=== PATIENT | female | born 1980 | race Caucasian/White ===

== ENCOUNTER 2017-10-13 21:09 | Inpatient (IN) | payer BC ==
[2017-10-13] MEDS ORDERED: Sodium Chloride 0.9% 10 ML Syringe FLUSH PRN (22:43)
[2017-10-13] MEDS ORDERED: Sodium Chloride 0.9% 1,000 ML IV SCH (23:15)
[2017-10-14] MEDS: fentaNYL 100 MCG/2 ML SDV IVPUSH PRN ×2 (00:16→01:20)
[2017-10-14] MEDS ORDERED: Lidocaine 1% 50 ML MDV ONE (01:28)
[2017-10-14] MEDS ORDERED: Methylergonovine 0.2 MG/1 ML Amp ONE (01:34)
[2017-10-14] MEDS ORDERED: Witch Hazel Medicated Pads 100/Jar TOP PRN (01:55)
[2017-10-14] MEDS ORDERED: Hydrocortisone 2.5% Crm 30 GM Tube TOP PRN (01:55)
[2017-10-14] MEDS ORDERED: Docusate Sodium 100 MG Cap PO PRN (01:55)
[2017-10-14] MEDS ORDERED: Benzocaine 20% Top Spray 56 GM Bottle TOP PRN (01:55)
[2017-10-14] MEDS ORDERED: Ibuprofen 200 MG Tab, 24 Tab Bulk Bottle PO PRN (02:03)
[2017-10-14] MEDS ORDERED: Acetaminophen 325 MG Tab, 50 Tab Bulk Bottle PO PRN (02:03)
--- NOTE | 2017-10-14 02:14 | PCM.LDHP ---
L&D History of Present Illness - General Date of Service: 10/14/17 (SROM) Admit Problem/Dx: Patient Status Order with Admit Dx/Problem 10/13/17 22:40 Patient Status [ADT] Routine 10/14/17 01:55 Patient Status [ADT] Routine Admission Diagnosis/Problem Admission Diagnosis/Problem Active labor Source of Information: Patient History Limitations: Reports: No Limitations - History of Present Illness Introduction:: This 37 yr old who is 38 2/7 present with SROM at parents home at 2030. Fluid was fluid. No contractions. Amnio sure was positive Adequate , healthy lady Labs: ABO A neg had Rhogam at 29 weeks HIV neg Rubella immune GBS neg ANGY 10/25/17 Pain Score: 10 Improves with: Reports: None Worsens with: Reports: None Associated Symptoms: Reports: vaginal fluid - Related Data Allergies/Adverse Reactions: Allergies Allergy/AdvReac Type Severity Reaction Status Date / Time morphine Allergy Hives Verified 10/08/13 13:59 Home Medications: Home Meds Vit #76/Iron,Carb/Fa [Prenatabs Rx] 1 tab PO DAILY 07/17/14 [History] Calcium Carbonate [Tums Extra Strength] 750 mg PO DAILY PRN 10/27/14 [History] Cetirizine HCl [Zyrtec] 10 mg PO DAILY PRN 10/13/17 [History] Omeprazole 20 mg PO DAILY 10/13/17 [History] Past Medical History PACS SPECIALIST History: Reports: : 4 Para: 1 LMP (Approximate): (38 2/7) Psychiatric History: Reports: Anxiety - Infectious Disease History Infectious Disease History: Reports: Chicken Pox, Shingles, Other (See Below) Other Infectious Disease History: [place] - Past Surgical History HEENT Surgical History: Reports: Tonsillectomy, Other (See Below) Other HEENT Surgeries/Procedures: wisdom teeth removed GI Surgical History: Reports: Appendectomy Social & Family History - Family History Family Medical History: Noncontributory - Tobacco Use Smoking Status *Q: Never Smoker Second Hand Smoke Exposure: No - Caffeine Use Caffeine Use: Reports: Coffee, Soda - Recreational Drug Use Recreational Drug Use: No H&P Review of Systems - Review of Systems: Review Of Systems: See Below General: Reports: No Symptoms HEENT: Reports: No Symptoms Pulmonary: Reports: No Symptoms Cardiovascular: Reports: No Symptoms Gastrointestinal: Reports: No Symptoms Genitourinary: Reports: No Symptoms Musculoskeletal: Reports: No Symptoms Skin: Reports: No Symptoms Psychiatric: Reports: No Symptoms Neurological: Reports: No Symptoms Hematologic/Lymphatic: Reports: No Symptoms Immunologic: Reports: No Symptoms L&D Exam - Exam Exam: See Below - Vital Signs Vital Signs: Last Vital Signs Temp 99.2 F 10/13/17 22:00 Pulse 107 H 10/13/17 22:00 Resp 20 10/13/17 22:00 BP 122/77 10/13/17 22:00 Pulse Ox Weight: 205 lb - OB Specific Contraction Duration (sec): 60 Contraction Frequency (min): 2 Contraction Intensity: Moderate to Strong Movement: Active Heart Tones: Present Heart Rate (FHR) Variability: Moderate (6-25 bmp) Presentation: Vertex Estimated Weight: 6-7 pounds - Stewart Score Stewart Score Cervix Position: Posterior Stewart Score Consistency: Soft Stewart Score Effacement: 51-70% Stewart Score Dilation: 1-2 cm Stewart Score Infant's Station: -2 Stewart Score Total: 6 - Exam General: Alert, Oriented HEENT: PERRLA, Conjunctiva Clear, EACs Clear, EOMI, Hearing Intact, Mucosa Moist & [place], Nares Patent, Normal Nasal Septum, Posterior Pharynx Clear, TMs Clear Neck: Supple, Trachea Midline Lungs: Clear to Auscultation, Normal Respiratory Effort Cardiovascular: Regular Rate, Regular Rhythm GI/Abdominal Exam: Normal Bowel Sounds, Soft, Non-Tender, No Organomegaly, No Distention, No Abnormal Bruit, No Mass, Pelvis Stable Rectal Exam: Normal Exam, Normal Rectal Tone Genitourinary: Normal external exam, Normal bimanual exam, Normal speculum exam Back Exam: Normal Inspection, Full Range of Motion Extremities: Normal Inspection, Normal Range of Motion, Non-Tender, No Pedal Edema, Normal Capillary Refill Skin: Warm, Dry, Intact Neurological: Cranial Nerves Intact, Reflexes Equal Bilateral Psychiatric: Alert, Normal Affect, Normal Mood - Patient Data Lab Results Last 24 hrs: Laboratory Results - last 24 hr 10/13/17 10/13/17 10/13/17 Range/Units 22:02 22:02 22:32 WBC (4.5-11.0) K/uL RBC (3.30-5.50) M/uL Hgb (12.0-15.0) g/dL Hct (36.0-48.0) % MCV (80-98) fL MCH (27-31) pg MCHC (32-36) % Plt Count (150-400) K/uL Urine Color Yellow Urine Appearance Cloudy Urine pH 6.5 (4.5-8.0) Ur Specific [place] 1.010 (1.008-1.030) Urine Protein Negative (NEGATIVE) mg/dL Urine Glucose (UA) Normal (NEGATIVE) mg/dL Urine Ketones Negative (NEGATIVE) mg/dL Urine Occult Blood Negative (NEGATIVE) Urine Nitrite Negative (NEGATIVE) Urine Bilirubin Negative (NEGATIVE) Urine Urobilinogen Normal (NORMAL) mg/dL Ur Leukocyte Esterase Small (NEGATIVE) Urine RBC 0-5 (0-5) Urine WBC 0-5 (0-5) Ur Epithelial Cells Few Amorphous Sediment Not seen Urine Bacteria Few Urine Mucus Not seen Membrane Rupture Positive H (NEGATIVE) Urine Opiates Screen Negative (NEGATIVE) Ur Oxycodone Screen Negative (NEGATIVE) Urine Methadone Screen Negative (NEGATIVE) Ur Propoxyphene Screen Negative (NEGATIVE) Ur Barbiturates Screen Negative (NEGATIVE) Ur Tricyclics Screen Negative (NEGATIVE) Ur Phencyclidine Scrn Negative (NEGATIVE) Ur Amphetamine Screen Negative (NEGATIVE) U Methamphetamines Scrn Negative (NEGATIVE) Urine MDMA Screen Negative (NEGATIVE) U Benzodiazepines Scrn Negative (NEGATIVE) U Cocaine Metab Screen Negative (NEGATIVE) U Marijuana (THC) Screen Negative (NEGATIVE) 10/13/17 Range/Units 22:57 WBC 12.4 H (4.5-11.0) K/uL RBC 4.07 (3.30-5.50) M/uL Hgb 11.6 L (12.0-15.0) g/dL Hct 35.6 L (36.0-48.0) % MCV 88 (80-98) fL MCH 29 (27-31) pg MCHC 33 (32-36) % Plt Count 300 (150-400) K/uL Urine Color Urine Appearance Urine pH (4.5-8.0) Ur Specific [place] (1.008-1.030) Urine Protein (NEGATIVE) mg/dL Urine Glucose (UA) (NEGATIVE) mg/dL Urine Ketones (NEGATIVE) mg/dL Urine Occult Blood (NEGATIVE) Urine Nitrite (NEGATIVE) Urine Bilirubin (NEGATIVE) Urine Urobilinogen (NORMAL) mg/dL Ur Leukocyte Esterase (NEGATIVE) Urine RBC (0-5) Urine WBC (0-5) Ur Epithelial Cells Amorphous Sediment Urine Bacteria Urine Mucus Membrane Rupture (NEGATIVE) Urine Opiates Screen (NEGATIVE) Ur Oxycodone Screen (NEGATIVE) Urine Methadone Screen (NEGATIVE) Ur Propoxyphene Screen (NEGATIVE) Ur Barbiturates Screen (NEGATIVE) Ur Tricyclics Screen (NEGATIVE) Ur Phencyclidine Scrn (NEGATIVE) Ur Amphetamine Screen (NEGATIVE) U Methamphetamines Scrn (NEGATIVE) Urine MDMA Screen (NEGATIVE) U Benzodiazepines Scrn (NEGATIVE) U Cocaine Metab Screen (NEGATIVE) U Marijuana (THC) Screen (NEGATIVE) Result Diagrams: 10/13/17 22:57 - Problem List (1) SROM (spontaneous rupture of membranes) SNOMED Code(s): 746096590 ICD Code: UHE2646 - Status: Acute Current Visit: Yes Problem List Initiated/Reviewed/Updated: Yes Orders Last 24hrs: Active Orders 24 hr Category Date Time Status Patient Status [ADT] Routine ADT 10/14/17 01:55 Active Antiembolic Devices [RC] .Routine Care 10/14/17 02:01 Active Communication Order [RC] ASDIRECTED Care 10/13/17 22:43 Active Communication Order [RC] ASDIRECTED Care 10/13/17 22:46 Active May Shower [RC] ASDIRECTED Care 10/14/17 01:55 Active OB Check [OM.PC] Click to Edit Care 10/13/17 22:00 Ordered PCEA Epidural [RC] ASDIRECTED Care 10/13/17 22:43 Active Peripheral IV Care [RC] Q12H Care 10/13/17 22:44 Active Up ad Shavon [RC] ASDIRECTED Care 10/14/17 01:55 Active VTE/DVT Education [RC] Click to Edit Care 10/14/17 02:01 Active Vital Signs [RC] PFP Care 10/14/17 01:55 Active Regular Diet [DIET] Diet 10/14/17 Breakfast Active AMNISURE RUPTURE MEMBRAN [BF] Routine Lab 10/13/17 22:32 Ordered CBC WITH AUTO DIFF [HEME] AM Lab 10/14/17 05:11 Ordered DRUG SCREEN, URINE [URCHEM] Routine Lab 10/13/17 22:02 Ordered UA W/MICROSCOPIC [URIN] Routine Lab 10/13/17 22:02 Ordered Acetaminophen [Tylenol Bulk Bottle] Med 10/14/17 02:03 Active 325 - 650 mg PO Q4H PRN Benzocaine [Lzqo-O-Wmuivhe 20% [place]] Med 10/14/17 01:55 Ordered See Dose Instructions TOP Q4H PRN Docusate Sodium [Colace] Med 10/14/17 01:55 Ordered 100 mg PO BID PRN Hydrocortisone [Proctozone-HC 2.5% Crm] Med 10/14/17 01:55 Ordered 1 gm TOP ASDIRECTED PRN Ibuprofen [Motrin Bulk Bottle] Med 10/14/17 02:03 Ordered 600 mg PO Q6H PRN Oxytocin/Normal Saline [Pitocin in NS 20 Units/1,000 ML Med 10/13/17 23:00 Active ] 20 unit in 1,000 ml IV TITRATE Sodium Chloride 0.9% [Normal Saline] 1,000 ml Med 10/13/17 23:15 Active IV ASDIRECTED Sodium Chloride 0.9% [Saline Flush] Med 10/13/17 22:43 Active 10 ml FLUSH ASDIRECTED PRN Witch Cherry [Tucks] Med 10/14/17 01:55 Ordered 1 pad TOP ASDIRECTED PRN fentaNYL [Sublimaze] Med 10/13/17 22:43 Active 100 mcg IVPUSH Q1H PRN Assess Lochia [WOMSER] Per Unit Routine Oth 10/14/17 01:55 Ordered Assess Uterine Involution [WOMSER] Per Unit Routine Oth 10/14/17 01:55 Ordered DVT/VTE Prophylaxis Reflex [OM.PC] Routine Oth 10/14/17 01:55 Ordered Ice Therapy [OM.PC] Per Unit Routine Oth 10/14/17 02:00 Ordered Perineal Care [OM.PC] Per Unit Routine Oth 10/14/17 02:00 Ordered Peripheral IV Discontinue [OM.PC] Routine Oth 10/14/17 02:00 Ordered Peripheral IV Insertion Adult [OM.PC] Routine Oth 10/13/17 22:43 Ordered Sitz Bath [OM.PC] Per Unit Routine Oth 10/14/17 02:00 Ordered Resuscitation Status Routine Resus Stat 10/14/17 01:55 Ordered Medication Orders Acetaminophen (Tylenol Bulk Bottle) 325 - 650 mg PO Q4H PRN PRN Reason: Pain Benzocaine (Iksf-V-Lovonrg 20% [place]) 0 gm TOP Q4H PRN PRN Reason: Perineal Comfort Measure Docusate Sodium (Colace) 100 mg PO BID PRN PRN Reason: Constipation Fentanyl (Sublimaze) 100 mcg IVPUSH Q1H PRN PRN Reason: Pain Last Admin: 10/14/17 00:16 Dose: 100 mcg Hydrocortisone (Proctozone-Hc 2.5% Crm) 1 gm TOP ASDIRECTED PRN PRN Reason: Itching Oxytocin/Sodium Chloride (Pitocin In Ns 20 Units/1,000 Ml) 20 unit in 1,000 mls @ 3 mls/hr IV TITRATE PATRICIA; Protocol Last Titration: 10/13/17 23:59 Dose: 4 munits/min, 12 mls/hr Admin: 10/13/17 23:18 Dose: 2 munits/min, 6 mls/hr Sodium Chloride (Normal Saline) 1,000 mls @ 0 mls/hr IV ASDIRECTED PATRICIA Last Admin: 10/13/17 23:18 Dose: 25 mls/hr Ibuprofen (Motrin Bulk Bottle) 600 mg PO Q6H PRN PRN Reason: Pain Sodium Chloride (Saline Flush) 10 ml FLUSH ASDIRECTED PRN PRN Reason: Keep Vein Open Rafi Carey (Tucks) 1 pad TOP ASDIRECTED PRN PRN Reason: Hemorrhoids Assessment/Plan Comment:: 10/13/17 Admit for augmentation of labor, pos SROM pitocin Epidural when ready Plan for vaginal delivery
--- NOTE | 2017-10-14 02:26 | PCM.DEL ---
L & D Note - General Info Date of Service: 10/14/17 (delivery) Mother's Due Date: 10/25/17 - Delivery Note Labor: Augmented by Oxytocin Delivery Outcome: Livebirth Infant Delivery Method: Spontaneous Vaginal Delivery-Single Infant Delivery Mode: Spontaneous Presentation: Vertex Nuchal Cord: None Anesthesia Type: None Anesthetic: Lidocaine (Xylocaine) 1% Plain Local Anesthetic Volume: 5cc Amniotic Fluid Description: Clear Episiotomy Type: None Laceration: 1st Degree, Perineal Suture type: Vicryl Suture size: 3-0 Placenta: Intact, Spontaneous Cord: 3 Vessels Estimated Blood Loss: 300 Resuscitation Needed: No : Bulb Syringe, [place] Used Provider: Lisa Booker Score 1 min: 9 Score 5 min: 10 Second Stage Interventions: Reports: Second Nurse Reviewed Heart Tones, Encouragement Given, Pushing Effectively, Pushing, McRobert's Position Delivery Comments (Free Text/Narrative):: This 37 year old G4 now P2 who is 38 3/7 delivered a viable female infant via at 0108 in AUGUSTINE position. Quick transition from 4 cm to complete. Mother pushed effectively and baby was delivered into my arms. She cried spontaneously , color pink. The cord was double clamped and cut and baby was placed in the warmer as the mother declined a wet baby. Apgars 9,10,10. Three vessel cord. The placenta was expressed spontaneously intact, juan. A first degree perineal tear was found and repaired with 3-0 vicryl. 1% lidocaine was used as a local agent 5cc. No other lacertation were found of the cervix, vagina, rectum. EBL 300cc Mother was bleeding despite pitocin for active management of the third stage and methergine was given IM. Mother and baby to post and nursery in stable condition. First stage 6316-6014 Second stage 4175-8128 third stage 7122-5066 weight 7-4 Induction Criteria - Stewart Score Stewart Score Dilation: 1-2 cm Stewart Score Effacement: 40-50% Stewart Score Infant's Station: -2 Stewart Score Consistency: Soft Stewart Score Cervix Position: Posterior Stewart Score Total: 5 Stewart Score Presenting Part: Reports: Cephalic - Augmentation Estimated Pelvis: Reports: Adequate Weight Estimated:: Reports: AGA Reassuring Monitoring Strip: Yes Absence of Tachy Systole: Yes - General Info Date of Service: 10/14/17 Admission Dx/Problem (Free Text): Patient Status Order with Admit Dx/Problem 10/13/17 22:40 Patient Status [ADT] Routine 10/14/17 01:55 Patient Status [ADT] Routine Admission Diagnosis/Problem Admission Diagnosis/Problem Active labor Functional Status: Reports: Pain Controlled - Review of Systems General: Reports: No Symptoms HEENT: Reports: No Symptoms Pulmonary: Reports: No Symptoms Cardiovascular: Reports: No Symptoms Gastrointestinal: Reports: No Symptoms Genitourinary: Reports: No Symptoms Musculoskeletal: Reports: No Symptoms Skin: Reports: No Symptoms Neurological: Reports: No Symptoms Psychiatric: Reports: No Symptoms - Patient Data Vitals - Most Recent: Last Vital Signs Temp 99.2 F 10/13/17 22:00 Pulse 107 H 10/13/17 22:00 Resp 20 10/13/17 22:00 BP 122/77 10/13/17 22:00 Pulse Ox Weight - Most Recent: 205 lb Lab Results Last 24 Hours: Laboratory Results - last 24 hr 10/13/17 10/13/17 10/13/17 Range/Units 22:02 22:02 22:32 WBC (4.5-11.0) K/uL RBC (3.30-5.50) M/uL Hgb (12.0-15.0) g/dL Hct (36.0-48.0) % MCV (80-98) fL MCH (27-31) pg MCHC (32-36) % Plt Count (150-400) K/uL Urine Color Yellow Urine Appearance Cloudy Urine pH 6.5 (4.5-8.0) Ur Specific [place] 1.010 (1.008-1.030) Urine Protein Negative (NEGATIVE) mg/dL Urine Glucose (UA) Normal (NEGATIVE) mg/dL Urine Ketones Negative (NEGATIVE) mg/dL Urine Occult Blood Negative (NEGATIVE) Urine Nitrite Negative (NEGATIVE) Urine Bilirubin Negative (NEGATIVE) Urine Urobilinogen Normal (NORMAL) mg/dL Ur Leukocyte Esterase Small (NEGATIVE) Urine RBC 0-5 (0-5) Urine WBC 0-5 (0-5) Ur Epithelial Cells Few Amorphous Sediment Not seen Urine Bacteria Few Urine Mucus Not seen Membrane Rupture Positive H (NEGATIVE) Urine Opiates Screen Negative (NEGATIVE) Ur Oxycodone Screen Negative (NEGATIVE) Urine Methadone Screen Negative (NEGATIVE) Ur Propoxyphene Screen Negative (NEGATIVE) Ur Barbiturates Screen Negative (NEGATIVE) Ur Tricyclics Screen Negative (NEGATIVE) Ur Phencyclidine Scrn Negative (NEGATIVE) Ur Amphetamine Screen Negative (NEGATIVE) U Methamphetamines Scrn Negative (NEGATIVE) Urine MDMA Screen Negative (NEGATIVE) U Benzodiazepines Scrn Negative (NEGATIVE) U Cocaine Metab Screen Negative (NEGATIVE) U Marijuana (THC) Screen Negative (NEGATIVE) 10/13/17 Range/Units 22:57 WBC 12.4 H (4.5-11.0) K/uL RBC 4.07 (3.30-5.50) M/uL Hgb 11.6 L (12.0-15.0) g/dL Hct 35.6 L (36.0-48.0) % MCV 88 (80-98) fL MCH 29 (27-31) pg MCHC 33 (32-36) % Plt Count 300 (150-400) K/uL Urine Color Urine Appearance Urine pH (4.5-8.0) Ur Specific [place] (1.008-1.030) Urine Protein (NEGATIVE) mg/dL Urine Glucose (UA) (NEGATIVE) mg/dL Urine Ketones (NEGATIVE) mg/dL Urine Occult Blood (NEGATIVE) Urine Nitrite (NEGATIVE) Urine Bilirubin (NEGATIVE) Urine Urobilinogen (NORMAL) mg/dL Ur Leukocyte Esterase (NEGATIVE) Urine RBC (0-5) Urine WBC (0-5) Ur Epithelial Cells Amorphous Sediment Urine Bacteria Urine Mucus Membrane Rupture (NEGATIVE) Urine Opiates Screen (NEGATIVE) Ur Oxycodone Screen (NEGATIVE) Urine Methadone Screen (NEGATIVE) Ur Propoxyphene Screen (NEGATIVE) Ur Barbiturates Screen (NEGATIVE) Ur Tricyclics Screen (NEGATIVE) Ur Phencyclidine Scrn (NEGATIVE) Ur Amphetamine Screen (NEGATIVE) U Methamphetamines Scrn (NEGATIVE) Urine MDMA Screen (NEGATIVE) U Benzodiazepines Scrn (NEGATIVE) U Cocaine Metab Screen (NEGATIVE) U Marijuana (THC) Screen (NEGATIVE) Med Orders - Current: Current Medications Acetaminophen (Tylenol Bulk Bottle) 325 - 650 mg PO Q4H PRN PRN Reason: Pain Benzocaine (Qxey-O-Uaubcep 20% [place]) 0 gm TOP Q4H PRN PRN Reason: Perineal Comfort Measure Docusate Sodium (Colace) 100 mg PO BID PRN PRN Reason: Constipation Fentanyl (Sublimaze) 100 mcg IVPUSH Q1H PRN PRN Reason: Pain Last Admin: 10/14/17 00:16 Dose: 100 mcg Hydrocortisone (Proctozone-Hc 2.5% Crm) 1 gm TOP ASDIRECTED PRN PRN Reason: Itching Oxytocin/Sodium Chloride (Pitocin In Ns 20 Units/1,000 Ml) 20 unit in 1,000 mls @ 3 mls/hr IV TITRATE PATRICIA; Protocol Last Titration: 10/13/17 23:59 Dose: 4 munits/min, 12 mls/hr Sodium Chloride (Normal Saline) 1,000 mls @ 0 mls/hr IV ASDIRECTED PATRICIA Last Admin: 10/13/17 23:18 Dose: 25 mls/hr Ibuprofen (Motrin Bulk Bottle) 600 mg PO Q6H PRN PRN Reason: Pain Sodium Chloride (Saline Flush) 10 ml FLUSH ASDIRECTED PRN PRN Reason: Keep Vein Open Witch Cherry (Tucks) 1 pad TOP ASDIRECTED PRN PRN Reason: Hemorrhoids Discontinued Medications Lidocaine HCl (Xylocaine 1%) Confirm Administered Dose 100 ml .ROUTE .STK-MED ONE Stop: 10/14/17 01:29 Methylergonovine Maleate (Methergine) Confirm Administered Dose 0.2 mg .ROUTE .STK-MED ONE Stop: 10/14/17 01:35 - Exam General: Alert, Oriented HEENT: Pupils Equal, Pupils Reactive, EOMI, Mucous Membr. Moist/[place] Neck: Supple Lungs: Clear to Auscultation, Normal Respiratory Effort Cardiovascular: Regular Rate, Regular Rhythm GI/Abdominal Exam: Normal Bowel Sounds, Soft, Non-Tender, No Organomegaly, No Distention, No Abnormal Bruit, No Mass, Pelvis Stable (Female) Exam: Enlarged Uterus, Vaginal Bleeding, Other (perineal tear) Back Exam: Normal Inspection, Full Range of Motion Extremities: Normal Inspection, Normal Range of Motion, Non-Tender, No Pedal Edema, Normal Capillary Refill Skin: Warm, Dry, Intact Wound/Incisions: Healing Well Neurological: No New Focal Deficit Psy/Mental Status: Alert, Normal Affect, Normal Mood - Problem List & Annotations (1) SROM (spontaneous rupture of membranes) SNOMED Code(s): 882425108 Code(s): CTN4795 - Status: Acute Current Visit: Yes (2) [place] SNOMED Code(s): 00206665 Code(s): Z38.2 - SINGLE LIVEBORN , UNSPECIFIED TO PLACE OF Status: Acute Current Visit: Yes Qualifiers: Gestational age of : 38 completed weeks Qualified Code(s): Z38.2 - Single liveborn infant, unspecified as to place of (3) Normal labor and delivery SNOMED Code(s): 65684869, 831583580 Code(s): O80 - ENCOUNTER FOR FULL-TERM UNCOMPLICATED DELIVERY Status: Acute Current Visit: Yes - Problem List Review Problem List Initiated/Reviewed/Updated: Yes - My Orders Last 24 Hours: My Active Orders 10/13/17 22:00 OB Check [OM.PC] Click to Edit 10/13/17 22:02 DRUG SCREEN, URINE [URCHEM] Routine UA W/MICROSCOPIC [URIN] Routine 10/13/17 22:32 AMNISURE RUPTURE MEMBRAN [BF] Routine 10/13/17 22:43 Communication Order [RC] ASDIRECTED PCEA Epidural [RC] ASDIRECTED Sodium Chloride 0.9% [Saline Flush] 10 ml FLUSH ASDIRECTED PRN fentaNYL [Sublimaze] 100 mcg IVPUSH Q1H PRN Peripheral IV Insertion Adult [OM.PC] Routine 10/13/17 22:44 Peripheral IV Care [RC] Q12H 10/13/17 22:46 Communication Order [RC] ASDIRECTED 10/13/17 23:00 Oxytocin/Normal Saline [Pitocin in NS 20 Units/1,000 ML] 20 unit in 1,000 ml IV TITRATE 10/13/17 23:15 Sodium Chloride 0.9% [Normal Saline] 1,000 ml IV ASDIRECTED 10/14/17 01:55 Patient Status [ADT] Routine May Shower [RC] ASDIRECTED Up ad Shavon [RC] ASDIRECTED Vital Signs [RC] PFP Benzocaine [Rnvj-G-Jrgvvih 20% [place]] See Dose Instructions TOP Q4H PRN Docusate Sodium [Colace] 100 mg PO BID PRN Hydrocortisone [Proctozone-HC 2.5% Crm] 1 gm TOP ASDIRECTED PRN Witch Cherry [Tucks] 1 pad TOP ASDIRECTED PRN Assess Lochia [WOMSER] Per Unit Routine Assess Uterine Involution [WOMSER] Per Unit Routine DVT/VTE Prophylaxis Reflex [OM.PC] Routine Resuscitation Status Routine 10/14/17 02:00 Ice Therapy [OM.PC] Per Unit Routine Perineal Care [OM.PC] Per Unit Routine Peripheral IV Discontinue [OM.PC] Routine Sitz Bath [OM.PC] Per Unit Routine 10/14/17 02:01 Antiembolic Devices [RC] .Routine VTE/DVT Education [RC] Click to Edit 10/14/17 02:03 Acetaminophen [Tylenol Bulk Bottle] 325 - 650 mg PO Q4H PRN Ibuprofen [Motrin Bulk Bottle] 600 mg PO Q6H PRN 10/14/17 05:11 CBC WITH AUTO DIFF [HEME] AM 10/14/17 Breakfast Regular Diet [DIET] - Assessment Assessment:: 10/14/17 37 yr old without complications Small perineal tear, repaired Normal , female ABO A neg, will need Rhogam workup - Plan Plan:: 10/13/17 Admit for augmentation of labor, pos SROM pitocin Epidural when ready Plan for vaginal delivery 10/14/17 Routine cares bottle feeding HGB in AM Rhogam workup 24-48 hour stay
[2017-10-14] MEDS: Acetaminophen/Codeine 300-30 MG Tab PO PRN ×3 (08:45→23:02)
[2017-10-14] MEDS ORDERED: Calcium Carbonate 500 MG Tab.Chew PO PRN (10:53)
[2017-10-15] MEDS: Acetaminophen/Codeine 300-30 MG Tab PO PRN (05:25)
[2017-10-15 07:25] VITALS: BP 107/55
--- NOTE | 2017-10-15 08:39 | PCM.PNPP ---
- General Info Date of Service: 10/15/17 Functional Status: Reports: Pain Controlled - Review of Systems General: Reports: No Symptoms HEENT: Reports: No Symptoms Pulmonary: Reports: No Symptoms Cardiovascular: Reports: No Symptoms Gastrointestinal: Reports: No Symptoms Genitourinary: Reports: No Symptoms Musculoskeletal: Reports: No Symptoms Skin: Reports: No Symptoms Neurological: Reports: No Symptoms Psychiatric: Reports: No Symptoms - General Info Date of Service: 10/15/17 - Patient Data Vital Signs - Most Recent: Last Vital Signs Temp 36.6 C 10/15/17 07:23 Pulse 88 10/15/17 07:23 Resp 18 10/15/17 07:23 BP 107/55 L 10/15/17 07:23 Pulse Ox 97 10/15/17 07:23 Weight - Most Recent: 92.986 kg I&O - Last 24 Hours: Intake & Output 10/14/17 10/15/17 10/15/17 22:59 06:59 14:59 Intake Total 600 Balance 600 Med Orders - Current: Current Medications Acetaminophen (Tylenol Bulk Bottle) 325 - 650 mg PO Q4H PRN PRN Reason: Pain Last Admin: 10/14/17 02:26 Dose: 1 bottle Acetaminophen/Codeine Phosphate (Tylenol With Codeine No.3 300mg/30mg) 1 tab PO Q6H PRN PRN Reason: Abdominal Pain Last Admin: 10/15/17 05:25 Dose: 1 tab Benzocaine (Xsup-B-Khietun 20% Frohna) 0 gm TOP Q4H PRN PRN Reason: Perineal Comfort Measure Last Admin: 10/14/17 02:27 Dose: 1 spray Calcium Carbonate/Glycine (Tums) 1,000 mg PO Q2H PRN PRN Reason: Indigestion Last Admin: 10/14/17 11:37 Dose: 1,000 mg Docusate Sodium (Colace) 100 mg PO BID PRN PRN Reason: Constipation Last Admin: 10/14/17 20:23 Dose: 100 mg Fentanyl (Sublimaze) 100 mcg IVPUSH Q1H PRN PRN Reason: Pain Last Admin: 10/14/17 01:20 Dose: 50 mcg Hydrocortisone (Proctozone-Hc 2.5% Crm) 1 gm TOP ASDIRECTED PRN PRN Reason: Itching Oxytocin/Sodium Chloride (Pitocin In Ns 20 Units/1,000 Ml) 20 unit in 1,000 mls @ 3 mls/hr IV TITRATE PATRICIA; Protocol Last Titration: 10/13/17 23:59 Dose: 4 munits/min, 12 mls/hr Sodium Chloride (Normal Saline) 1,000 mls @ 0 mls/hr IV ASDIRECTED PATRICIA Last Admin: 10/13/17 23:18 Dose: 25 mls/hr Ibuprofen (Motrin Bulk Bottle) 600 mg PO Q6H PRN PRN Reason: Pain Last Admin: 10/14/17 02:26 Dose: 1 bottle Sodium Chloride (Saline Flush) 10 ml FLUSH ASDIRECTED PRN PRN Reason: Keep Vein Open Witch Cherry (Tucks) 1 pad TOP ASDIRECTED PRN PRN Reason: Hemorrhoids Last Admin: 10/14/17 02:25 Dose: 1 pad Discontinued Medications Lidocaine HCl (Xylocaine 1%) Confirm Administered Dose 100 ml .ROUTE .STK-MED ONE Stop: 10/14/17 01:29 Last Admin: 10/14/17 01:27 Dose: 50 ml Methylergonovine Maleate (Methergine) Confirm Administered Dose 0.2 mg .ROUTE .STK-MED ONE Stop: 10/14/17 01:35 Last Admin: 10/14/17 01:36 Dose: 0.2 mg - Infant Interaction Disposition, : in Room with Family Infant Interaction: Holding Infant Feeding: Bottle Fed Support Person: - Recovery Exam Fundal Tone: Firm Fundal Level: At Umbilicus Fundal Placement: Midline Lochia Amount: Small Lochia Color: Rubra/Red Perineum Description: Intact, Minimal Bruising/Swelling Bladder Status: Voiding Urinary Elimination: Voided - Exam General: Alert, Oriented HEENT: Pupils Equal Neck: Supple Lungs: Clear to Auscultation, Normal Respiratory Effort Cardiovascular: Regular Rate, Regular Rhythm GI/Abdominal Exam: Normal Bowel Sounds, Soft, Non-Tender, No Organomegaly, No Distention, No Abnormal Bruit, No Mass, Pelvis Stable Extremities: Normal Inspection, Normal Range of Motion, Non-Tender, No Pedal Edema, Normal Capillary Refill Skin: Warm, Dry, Intact Neurological: No New Focal Deficit Psy/Mental Status: Alert, Normal Affect, Normal Mood - Problem List & Annotations (1) Normal vaginal delivery SNOMED Code(s): 15604300 Code(s): O80 - ENCOUNTER FOR FULL-TERM UNCOMPLICATED DELIVERY Status: Acute Current Visit: Yes - Problem List Review Problem List Initiated/Reviewed/Updated: Yes - Assessment Assessment:: 10/14/17 37 yr old without complications Small perineal tear, repaired Normal , female ABO A neg, will need Rhogam workup 10/15/2017 Day One without complications Fundus firm and bleeding decreasing Pain well tolerated with oral pain medication Hgb-11.6 today - Plan Plan:: 10/13/17 Admit for augmentation of labor, pos SROM pitocin Epidural when ready Plan for vaginal delivery 10/14/17 Routine cares bottle feeding HGB in AM Rhogam workup 24-48 hour stay 10/15/2017 Continue routine cares Continue bottlefeeding Discharge home today To see Lisa in 6 weeks for visit
== END 2017-10-15 10:30 | disposition home or self-care (01) | DRG 560 ==
LOC: JP.OBCHECK 21:09 → JP.OB 22:45 → OBSVTOIN 10-14 01:08 → JP.MS 10-14 03:13
PROVIDERS: ADMIT Nurse Practitioner Family; ATTEND Nurse Practitioner Family
PROC: 10E0XZZ Delivery of Products of Conception, External Approach (ICD-10-PCS; principal; 2017-10-14)
PROC: 0HQ9XZZ Repair Perineum Skin, External Approach (ICD-10-PCS; 2017-10-14)
PROC: 00HU33Z Insertion of Infusion Device into Spinal Canal, Percutaneous Approach (ICD-10-PCS; 2017-10-14)
DX: O70.0 First degree perineal laceration during delivery (principal); Z3A.38 38 weeks gestation of pregnancy; Z37.0 Single live birth
CPT/HCPCS: 36415; 59409; 80305; 81001; 84112; 85025; 85027; 99211; A9270-GY; J2210; J2590; J3010; J7030

== ENCOUNTER 2020-03-15 07:02 | Day surgery (SDC) | payer BC ==
[2020-03-15] MEDS ORDERED: Sodium Chloride 0.9% 1,000 ML IV SCH (07:30)
[2020-03-15] MEDS ORDERED: Propofol 200 MG/20 ML SDV ONE (07:34)
[2020-03-15] MEDS ORDERED: fentaNYL 100 MCG/2 ML SDV ONE (07:34)
[2020-03-15] MEDS ORDERED: Midazolam 1 MG/ML 2 ML SDV ONE (07:34)
[2020-03-15 07:59] VITALS: BP 106/52; PULSE 78
== END 2020-03-15 08:26 | disposition home or self-care (01) ==
LOC: JP.SDS 07:02
PROVIDERS: ATTEND Surgery
DX: K62.5 Hemorrhage of anus and rectum (principal); Z53.09 Procedure and treatment not carried out because of other contraindication; U07.1 COVID-19
CPT/HCPCS: 81025; J2250; J2704; J3010; U0002

== ENCOUNTER 2020-04-08 00:39 | Emergency (ER) | payer BC ==
[2020-04-08 01:03] VITALS: BP 124/81; PULSE 103
--- NOTE | 2020-04-08 01:14 | EDM.PDOC ---
ED HPI GENERAL MEDICAL PROBLEM - General Chief Complaint: Skin Complaint Stated Complaint: INFECTED LEFT LEG Time Seen by Provider: 04/08/20 01:07 Source of Information: Reports: Patient, RN Notes Reviewed History Limitations: Reports: No Limitations - History of Present Illness INITIAL COMMENTS - FREE TEXT/NARRATIVE: 39-year-old female presents emergency department today with breakdown of skin on her left lower leg she is concerned about cellulitis, it is increasing in redness and warmth to the touch she does have an opening in the skin, she admits she did scratch this and open it Left Leg Pain Score (Numeric/FACES): 7 - Related Data Allergies Allergy/AdvReac Type Severity Reaction Status Date / Time cranberry Allergy Other Verified 04/08/20 00:53 morphine Allergy Hives Verified 04/08/20 00:53 Home Meds: Home Meds busPIRone [Buspar] 10 mg PO TID 03/14/20 [History] Vitamin B6-pyridOXINE [Vitamin B6] 10 mg PO DAILY 03/15/20 [History] Past Medical History HEENT History: Reports: None Gastrointestinal History: Reports: GERD, Other (See Below) Other Gastrointestinal History: bleedy stools [employer] History: Reports: Polycystic Ovaries, Psychiatric History: Reports: Anxiety, Depression Dermatologic History: Reports: Eczema - Infectious Disease History Infectious Disease History: Reports: Chicken Pox, Shingles Other Infectious Disease History: Roseola - Past Surgical History HEENT Surgical History: Reports: Tonsillectomy, Other (See Below) Other HEENT Surgeries/Procedures: wisdom teeth removed GI Surgical History: Reports: Appendectomy Dermatological Surgical History: Reports: None Social & Family History - Family History Family Medical History: No Pertinent Family History - Tobacco Use Tobacco Use Status *Q: Never Tobacco User Second Hand Smoke Exposure: No - Caffeine Use Caffeine Use: Reports: Coffee, Energy Drinks - Alcohol Use Days Per Week of Alcohol Use: 1 Number of Drinks Per Day: 1 Total Drinks Per Week: 1 - Recreational Drug Use Recreational Drug Use: No ED ROS GENERAL - Review of Systems Review Of Systems: See Below Constitutional: Reports: No Symptoms Skin: Reports: Bruising, Rash, Erythema, Wound ED EXAM, SKIN/RASH Exam: See Below Text/Narrative:: Examination of the integument system lower extremity left leg she does have excoriation consistent with itch scratch cycle however there was an area near the top it is warm to the touch tender to the touch consistent with a cellulitis type picture local about the size of a tennis ball Exam Limited By: No Limitations General Appearance: Alert, WD/WN, No Apparent Distress Course - Vital Signs Last Recorded V/S: Last Vital Signs Temp 97.5 F 04/08/20 01:02 Pulse 103 H 04/08/20 01:02 Resp 16 04/08/20 01:02 BP 124/81 04/08/20 01:02 Pulse Ox 97 04/08/20 01:02 Departure - Departure Time of Disposition: :13 Disposition: Home, Self-Care 01 Condition: Fair Clinical Impression: Cellulitis Qualifiers: Site of cellulitis: extremity Site of cellulitis of extremity: lower extremity Laterality: left Qualified Code(s): L03.116 - Cellulitis of left lower limb - Discharge Information Instructions: Cellulitis, Adult Referrals: Lisa Booker CNM [Primary Care Provider] - Additional Instructions: Take full course of antibiotics, please followup with your primary care provider in 5-7 days if not better, please call return to the emergency department with worsening of symptoms. Sepsis Event Note (ED) - Evaluation Sepsis Screening Result: No Definite Risk - Focused Exam Vital Signs: Vital Signs Temp Pulse Resp BP Pulse Ox 04/08/20 01:02 97.5 F 103 H 16 124/81 97 - Assessment/Plan Plan: Assessment Acuity = acute Site and laterality = cellulitis left lower extremity Etiology = probably related to a scratch cycle with a break in the skin bacterial cause Manifestations = none Location of injury = Home Lab values = none Plan Elected to treat empirically Bactrim DS 1 tab p.o. twice daily x7 days follow-up primary care 5 to 7 days if not better This note was dictated using [employer] recognition software please call with any questions on syntax or grammar.
== END 2020-04-08 01:17 | disposition home or self-care (01) ==
LOC: JP.ED 00:39
DX: L03.116 Cellulitis of left lower limb (principal); F41.9 Anxiety disorder, unspecified; F32.9 Major depressive disorder, single episode, unspecified; Z88.5 Allergy status to narcotic agent; Z90.49 Acquired absence of other specified parts of digestive tract; Z91.018 Allergy to other foods; Z79.899 Other long term (current) drug therapy
CPT/HCPCS: 99283

== ENCOUNTER 2022-06-26 21:43 | Emergency (ER) | payer BC ==
[2022-06-26] MEDS ORDERED: Alum Hydrox/Mag Hydrox/Simeth 15 ML, Lidocaine 2% 15 ML PO ONE ×2 (21:49)
[2022-06-26 22:15] LABS: ESTIMATED GFR 110 mL/min (>60); TROPONIN I HIGH SENSITIVITY 4.2 pg/mL (<=60.3)
[2022-06-26 22:18] VITALS: PULSE 80
[2022-06-26] MEDS ORDERED: Ketorolac 15 MG/ML SDV IVPUSH ONE (22:46)
[2022-06-26 23:20] VITALS: BP 117/75
== END 2022-06-26 23:35 | disposition home or self-care (01) ==
LOC: JP.ED 21:43
DX: K21.00 Gastro-esophageal reflux disease with esophagitis, without bleeding (principal); Z91.018 Allergy to other foods; Z88.5 Allergy status to narcotic agent
CPT/HCPCS: 36415; 71046; 80053; 83690; 83735; 84484; 85025; 85379; 86140; 93005; 96374; 99285; A9270; J1885